=== PATIENT | female | born 1950 | race Two or more races ===

== ENCOUNTER 2024-06-03 11:48 | Inpatient (IN) | payer OTHER ==
[~2024-06-03] VITALS: Ht 177.8 cm; Wt 64.4 kg
[2024-06-03] MEDS ORDERED: COZAAR100 MG (12:17)
[2024-06-03] MEDS ORDERED: JARDIANCE25 MG (12:18)
[2024-06-03] MEDS ORDERED: GLUCOTROL XL5 MG (12:18)
[2024-06-03] MEDS ORDERED: METFORMIN HCL500 MG (12:19)
[2024-06-03 16:04] LABS: HEMATOCRIT 43.3 % (36.0-45.00); HEMOGLOBIN 14.3 g/dL (12.0-15.00); MEAN CELL VOLUME 93.9 fL (80.00-100.00); MEAN CORPUSCULAR HEMOGLOBIN 31.1 pg (27.00-32.0); MEAN CORPUSCULAR HGB CONC 33.1 g/dl (32.0-36.0); PLATELET COUNT 245 K/uL (150-450); RED BLOOD COUNT 4.61 M/uL (4.00-6.00)
[2024-06-03 16:19] LABS: CALCIUM 10.4 mg/dL (8.5-10.1); CREATININE SERUM 0.68 mg/dL (0.55-1.02); GFR 84.81; POTASSIUM 4.46 mEq/L (3.5-5.1)
[2024-06-03 18:17] LABS: URINE APPEARANCE Clear; URINE BILIRRUBIN Negative (NEGATIVE); URINE BLOOD Negative; URINE COLOR Yellow; URINE KETONE Negative (NEGATIVE); URINE LEUKOCYTE Negative; URINE NITRATE Negative; URINE PROTEIN Negative (NEGATIVE); URINE UROBILINOGEN 0.2 E.U./dl
[2024-06-03 18:22] LABS: URINE BACTERIA 36.7 uL (0.0-1933); URINE EPITHELIAL CELLS 5.3 uL (0.0-38.8); URINE RBC 5.4 uL (0.0-20.8); URINE WBC 25.1 uL (0.0-23.2)
[2024-06-03 18:28] LABS: URINE CAST 0.14 uL (0.0-1.40); URINE GLUCOSE >=1000 MG/DL (NEGATIVE)
[2024-06-03] MEDS ORDERED: TAMSULOSIN HCL 0.4 MG CAP PO SCH (19:50)
[2024-06-03] MEDS ORDERED: CEFTRIAXONE SODIUM 2,000 MG in 0.9 % SODIUM CHLORIDE 100 ML IV SCH (19:50)
[2024-06-03] MEDS ORDERED: INSULIN LISPRO 1,000 UNIT/10 ML UNITS SUBCUTANEO PRN (20:00)
[2024-06-03] MEDS ORDERED: DEXTROSE 50 % IN WATER 0.5 G/ML DISP.SYRIN IV PRN (20:00)
[2024-06-03] MEDS ORDERED: 0.9 % SODIUM CHLORIDE 1,000 ML IV SCH (20:00)
[2024-06-03] MEDS ORDERED: KETOROLAC TROMETHAMINE 15 MG VIAL IU SCH (20:00)
[2024-06-04] MEDS ORDERED: TAMSULOSIN HCL 0.4 MG CAP PO ONE (00:15)
[2024-06-04] MEDS ORDERED: KETOROLAC TROMETHAMINE 30 MG VIAL ONE (00:15)
[2024-06-04] MEDS ORDERED: CEFTRIAXONE SODIUM 2,000 MG VIAL ONE (00:16)
[2024-06-04 01:23] VITALS: BP 154/70
[2024-06-04 01:44] LABS: INR 1.01; PARTIAL THROMBOPLASTIN TIME 27.3 SECONDS (22.0-34.0)
[2024-06-04 07:48] VITALS: BP 136/79; O2SAT 99
[2024-06-04] MEDS ORDERED: KETOROLAC TROMETHAMINE 30 MG VIAL IV SCH (09:00)
[2024-06-04] MEDS ORDERED: LOSARTAN POTASSIUM 100 MG TABLET PO SCH (09:00)
[2024-06-04] MEDS ORDERED: FAMOTIDINE/PF 20 MG in 0.9 % SODIUM CHLORIDE 8 ML IV PUSH SCH (09:00)
[2024-06-04] MEDS ORDERED: SODIUM CHLORIDE 0.45 % 1,000 ML IV SCH (11:45)
[2024-06-04 16:37] VITALS: BP 142/82; O2SAT 99
[2024-06-05 00:56] VITALS: BP 154/62; O2SAT 96
[2024-06-05] MEDS ORDERED: KETOROLAC TROMETHAMINE 30 MG VIAL ONE (01:30)
[2024-06-05] MEDS ORDERED: LOSARTAN POTAS100 MG PO (10:46)
[2024-06-05] MEDS ORDERED: TAMS0.4C PO (10:46)
[2024-06-05] MEDS ORDERED: JARDIANCE25 MG PO (10:47)
[2024-06-05] MEDS ORDERED: GLUCOTROL XL5 MG PO (10:49)
[2024-06-05] MEDS ORDERED: METFORMIN HCL500 MG PO (10:49)
[2024-06-05] MEDS ORDERED: NAPROXEN250 MG PO (10:53)
[2024-06-05] MEDS ORDERED: TRAM1TAB98 PO (10:55)
[2024-06-05] MEDS ORDERED: LEVOFLOXACIN500 MG PO (10:57)
== END 2024-06-05 12:14 | disposition home or self-care (01) | DRG 694 ==
LOC: ER 11:49 → SEC-K 20:02 → MEDI 06-04 21:58 → SEC-K 06-04 22:10
PROVIDERS: General Practice; ADMIT Internal Medicine; ATTEND Internal Medicine
PROC: BW21ZZZ Computerized Tomography (CT Scan) of Abdomen and Pelvis (ICD-10-PCS; principal; 2024-06-03)
DX: N20.0 Calculus of kidney (principal); N13.4 Hydroureter; N13.30 Unspecified hydronephrosis; M54.9 Dorsalgia, unspecified

== ENCOUNTER → 2024-06-12 | Emergency (ER) | payer OTHER ==
[~2024-06-12] MED LIST: COZAAR100 MG; GLUCOTROL XL5 MG; GLUCOTROL XL5 MG PO; JARDIANCE25 MG; JARDIANCE25 MG PO; LEVOFLOXACIN500 MG PO; LOSARTAN POTAS100 MG PO; METFORMIN HCL500 MG; METFORMIN HCL500 MG PO; NAPROXEN250 MG PO; TAMS0.4C PO; TRAM1TAB98 PO
== END | disposition left against medical advice (07) ==
LOC: ER 12:41
DX: Z53.21 Procedure and treatment not carried out due to patient leaving prior to being seen by health care provider (principal)